=== PATIENT | male | born 1970 | race Caucasian/White ===

== ENCOUNTER 2018-12-18 06:33 | Day surgery (SDC) | payer BC, OTHER ==
[2018-12-18] VITALS (11 sets, daily range): BP systolic 107–127; BP diastolic 64–82; PULSE 66–88; RESP 14–20; Ht 162.6 cm; Wt 70.0 kg
[~2018-12-18] VITALS: Ht 162.6 cm; Wt 70.0 kg
[2018-12-18] MEDS ORDERED: AMLO5TAB4 PO (06:53)
[2018-12-18] MEDS ORDERED: POVIDONE IODINE 10% 28.4 GM OINT ONE (06:55)
[2018-12-18] MEDS ORDERED: LIDOCAINE 1% (MPF) 30 ML INJ ONE (06:55)
[2018-12-18] MEDS ORDERED: DEXAMETHASONE 4 MG/ML 1 ML INJ ONE (06:55)
[2018-12-18] MEDS ORDERED: BUPIVACAINE 0.5% (SDV) 30 ML INJ ONE (06:55)
[2018-12-18] MEDS ORDERED: SERT50TA PO (06:55)
--- NOTE | 2018-12-18 07:08 | PREAC ---
Date/Time of Note Date/Time of Note DATE: 12/18/18 TIME: 07:07 Anesthesia Eval and Record Evaluation Time Pre-Procedure Interview DATE: 12/18/18 TIME: 07:07 Age 48 Sex male NPO: 8 hrs Preoperative diagnosis arthritis right first metatarsal Planned procedure ARTHRODESIS RIGHT FIRST METATARSAL Past Medical History Past Medical History: Includes Cardio: Dyslipidemia Pulm: Smoking Hx Hepatic: Alcohol abuse Psych: Anxiety Recreational drugs: Marijuana Surgery & Anesthesia Issues No known issue Meds Anticoagulation: No Beta Cachorro within 24 hr: No Reason Beta Cachorro not given: Pt. not on B-Cachorro Reported Medications Sertraline Hcl* (Zoloft*) 50 Mg Tablet, 75 MG PO DAILY, #30 TAB 12/18/18 Amlodipine Besylate* (Norvasc*) 5 Mg Tablet, 5 MG PO DAILY, TAB 12/18/18 Meds reviewed: Yes Allergies Coded Allergies: No Known Allergy (Unverified , 12/18/18) Allergies Reviewed: Yes Labs/Studies Labs Reviewed: Reviewed by anesthesiologist test: N/A Studies: ECG, CXR Pre-procedure Exam Airway: Adequate mouth opening Mallampati: Mallampati II Teeth: Normal Lung: Normal Heart: Normal ASA Physical Status ASA physical status: 2 Emergency: None Planned Anesthetic General/MAC: ETT Pre-operative Attestations Prior to commencing anesthesia and surgery, the patient was re-evaluated, there was verification of: *The patient's identity *The results of appropriate recent lab work and preoperative vital signs *The above evaluation not changing prior to induction *Anesthetic plan, risk benefits, alternative and complications discussed with patient/family; questions answered; patient/family understands, accepts and wishes to proceed. IVETTE TUCKER December 18, 2018 07:07
[2018-12-18] MEDS ORDERED: MIDAZOLAM 1 MG/ML 2 ML INJ ONE (07:09)
[2018-12-18] MEDS ORDERED: DEXAMETHASONE 4 MG/ML 5 ML INJ ONE (07:09)
[2018-12-18] MEDS ORDERED: ROCURONIUM 50 MG INJ ONE (07:09)
[2018-12-18] MEDS ORDERED: FENTAnyl 50 MCG/ML VIAL ONE (07:09)
[2018-12-18] MEDS ORDERED: CEFAZOLIN 1 GM INJ ONE (07:09)
[2018-12-18] MEDS ORDERED: LIDOCAINE 100 MG SYRINGE ONE (07:09)
[2018-12-18] MEDS ORDERED: PROPOFOL 20 ML ONE (07:09)
[2018-12-18] MEDS ORDERED: ONDANSETRON 4 MG INJ ONE (07:09)
[2018-12-18] MEDS ORDERED: SUGAMMADEX SODIUM 200 MG/2 ML VIAL IV ONE (07:10)
[2018-12-18] MEDS ORDERED: PROVENTIL HFA 6.7GM INHALER ONE (07:29)
[2018-12-18] MEDS ORDERED: METOCLOPRAMIDE 10 MG INJ IV PRN (07:30)
[2018-12-18] MEDS ORDERED: LABETALOL HCL 20MG INJ IV PRN (07:30)
[2018-12-18] MEDS ORDERED: FENTAnyl 50 MCG/ML VIAL IV PRN ×2 (07:30)
[2018-12-18] MEDS ORDERED: ONDANSETRON 4 MG INJ IV PRN (07:30)
[2018-12-18] MEDS ORDERED: HYDROmorphONE 1 MG/5 ML IV SYRINGE IV PRN ×2 (07:30)
[2018-12-18] MEDS ORDERED: hydrALAzine 20 MG INJ IV PRN (07:30)
[2018-12-18] MEDS ORDERED: MEPERIDINE 25 MG INJ IV PRN (07:30)
--- NOTE | 2018-12-18 07:46 | HPN ---
Date/Time of Note Date/Time of Note DATE: 12/18/18 TIME: 07:46 Interval H&P Admission Note Pt. seen H&P reviewed: No system changes BERNARDO MAST DPM December 18, 2018 07:46
[2018-12-18] MEDS ORDERED: LIDOCAINE 1% (MDV) 20 ML INJ INJ ONE (08:00)
[2018-12-18] MEDS ORDERED: BUPIVACAINE 0.5% (SDV) 30 ML INJ INJ ONE (08:00)
[2018-12-18] MEDS ORDERED: KETOROLAC 30 MG INJ ONE (08:53)
--- NOTE | 2018-12-18 09:13 | SIPON ---
Date/Time of Note Date/Time of Note DATE: 12/18/18 TIME: 09:11 Operative Report Preoperative Diagnosis painful arthritic right first metatarsal phalangeal joint Postoperative Diagnosis painful arthritic right first metatarsal phalangeal joint Operation/Procedure Performed arthrodesis right first metatarsal phalangeal joint Surgeon see signature line asset protection assistant none Anesthesia: general, MAC Estimated blood loss: none Transfusion Required none Specimen none Grafts/Implants none Complications none BERNARDO MAST DPM December 18, 2018 09:13
--- NOTE | 2018-12-18 09:17 | PAC ---
Date/Time of Note Date/Time of Note DATE: 12/18/18 TIME: 09:16 Post-Anesthesia Notes Post-Anesthesia Note Last documented vital signs Vital Signs Date Temp Pulse Resp B/P (MAP) Pulse Ox O2 O2 Flow FiO2 Time Delivery Rate 12/18/18 98.1 74 14 117/73 96 Room Air 07:04 (88) Activity: WNL Respiratory function: WNL Cardiovascular function: WNL Mental status: Baseline Pain reasonably controlled: Yes Hydration appropriate: Yes Nausea/Vomiting absent: Yes IVETTE TUCKER December 18, 2018 09:17
--- NOTE | 2018-12-18 18:59 | OPR ---
DATE OF OPERATION: 12/18/2018 SURGEON: Alison Pimentel DPM. ANESTHESIOLOGIST: Nilson [____], FRONT OFFICE COORDINATOR. ANESTHESIA: Local with IV sedation. PREOPERATIVE DIAGNOSIS: Painful arthritic right first metatarsophalangeal joint. POSTOPERATIVE DIAGNOSIS: Painful arthritic right first metatarsophalangeal joint. PROCEDURE PERFORMED: Arthrodesis right first metatarsophalangeal joint. DESCRIPTION OF PROCEDURE: The patient was brought into the operating room, placed on the table in a secure supine position. Cardiac morning, IV sedation and an ankle pneumatic tourniquet were utilized for this case. Preoperatively, a total of 20 cc of 0.5 percent Marcaine plain mixed with 2 percent lidocaine plain were infiltrated into the right foot in the form of a Brooks block. Upon achieving anesthesia, the right foot and leg were prepped and draped in the usual sterile manner and the ankle pneumatic tourniquet was inflated to 250 mmHg. Procedure number 1 was then performed, arthrodesis right first metatarsophalangeal joint. A 4 cm dorsal incision was placed over the first metatarsophalangeal joint. The incision was deepened and superficial bleeders were then cauterized and bovied as necessary. The capsule was identified with a linear capsulotomy was performed. The hypertrophic dorsal exostosis was removed with a sagittal saw. The cartilaginous surface was significantly denuded of cartilage showing arthritic changes of the first metatarsophalangeal joint. Using the appropriate reamers the metatarsal head was resurfaced, as well as the base of the proximal phalanx of the right hallux. Temporary fixation with achieved after fenestrated in the articular surfaces with 0.062 Liang wire to good bleeding bone. A 3.0 mm x 34 mm cannulated [place] screw was inserted from the proximal medial to distal lateral crossing the metatarsophalangeal joint. Good alignment was noted using intraoperative fluoroscopy. A dorsal Gilles first metatarsophalangeal joint fusion plate was applied dorsally with locking screws. Good stability and position of the hallux was noted. Intraoperatively a plate was utilized under the foot to see the weightbearing surface and the hallux purchase which was found to be satisfactory prior to primary fixation. The surgical site was irrigated with sterile saline mixed with bacitracin solution. The capsule was closed with running 3-0 Vicryl interlocking stitches. The subcutaneous tissue was closed with 4-0 Vicryl simple interrupted sutures and skin edges were reapproximated with a running 4-0 nylon interlocking stitch. The dressing consisted of Xeroform gauze, 4 x 4 gauze, 4 inch Kerlix roll, and 2 inch Coban into a semi-compressive dressing. The ankle pneumatic tourniquet was deflated and immediate hyperemia to all digits of the right foot were noted instantaneously. No intraoperative complications were encountered. Patient tolerated the above procedure well. Prior to leaving the operating room, a posterior splint was applied. The patient remains nonweightbearing with crutches or a knee walker. The patient will follow up 1 week postop. Dictated By: Alison Pimentel DPM /[email or web address]/bairon /Document#: [id number]
== END 2018-12-18 10:38 | disposition home or self-care (01) ==
LOC: SDS 06:33
PROVIDERS: ATTEND Podiatrist Primary Podiatric Medicine
DX: M19.071 Primary osteoarthritis, right ankle and foot (principal); E78.5 Hyperlipidemia, unspecified; F41.9 Anxiety disorder, unspecified; F12.90 Cannabis use, unspecified, uncomplicated; Z87.891 Personal history of nicotine dependence
CPT/HCPCS: 28750; 73630; J0690; J1100; J1885; J2001; J2175; J2250; J2405; J3010